=== PATIENT | male | born 1965 | race Two or more races ===

== ENCOUNTER 2024-05-03 19:17 | Emergency (ER) | payer MEDICAID, OTHER ==
[~2024-05-03] VITALS: Ht 180.3 cm; Wt 113.7 kg
--- NOTE | 2024-05-03 19:49 | DVH ---
EXAMINATION: AP portable chest radiograph CLINICAL HISTORY: chest pain COMPARISON: None FINDINGS: No dominant consolidation. The costophrenic angles appear clear. No sizable pleural effusion or pneu mothorax identified. The cardiomediastinal silhouette appears within normal limits given technique. IMPRESSION: No acute cardiopulmonary findings as visualized.
[2024-05-03 20:09] LABS: Basophils # (auto) 0 10 ^3/uL (0-0.2); Basophils % (auto) 0.5 % (0.0-2.0); Eosinophils # (auto) 0.1 10 ^3/uL (0-0.8); Eosinophils % (auto) 1.1 % (0.0-7.0); Hemoglobin 16.7 g/dL (13.5-17.5); Lymphocytes # (auto) 3.3 10 ^3/uL (0.4-5.4); Lymphocytes % (auto) 36.4 % (10.0-50.0); Mean Corpuscular Hemoglobin 30.9 pg (28.0-32.0); Mean Corpuscular Hgb Conc. 35.4 g/dL (32.0-36.0); Monocytes # (auto) 0.7 10 ^3/uL (0-1.3); Monocytes % (auto) 7.3 % (0.0-12.0); Neutrophils # (auto) 4.9 10 ^3/uL (1.6-8.6); Neutrophils % (auto) 54.7 % (37.0-80.0); Nucleated Red Blood Cells % 0.1 %; Platelet Count (auto) 275 10^3/uL (140-450); Red Cell Distribution Width 14.2 % (11.8-14.3)
[2024-05-03 20:24] LABS: Alanine Aminotransferase 30 U/L (7-40); Anion Gap 8 (5-15); Aspartate Aminotransferase 22 U/L (13-40); BUN/Creatinine Ratio 17.7 (10.0-20.0); Bilirubin, Total 0.6 mg/dL (0.2-1.0); Blood Urea Nitrogen 20 mg/dL (9-23); Carbon Dioxide 28 mmol/L (20-31); Chloride 105 mmol/L (98-107); Glucose 95 mg/dL (74-106); Potassium 4.4 mmol/L (3.5-5.1); Sodium 141 mmol/L (136-145); Total Protein 7.6 g/dL (5.7-8.2)
[2024-05-03 20:26] LABS: Albumin 4.9 g/dL (3.2-4.8); Alkaline Phosphatase 126 U/L (46-116); Calcium 10.8 mg/dL (8.7-10.4)
[2024-05-03] MEDS: ASPirin-EC 325mg tab PO ONE (21:26)
[2024-05-03 22:47] LABS: Urine Bacteria None Seen /hpf (None Seen)
[2024-05-03 22:53] LABS: Urine Blood Negative /uL (Negative); Urine Clarity Clear (Clear); Urine Color Yellow (Yellow); Urine Mucus FEW (None Seen); Urine Protein, UAD 3+ (Negative); Urine Specific Gravity 1.025 (1.001-1.035); Urine Squamous Epithelial Cell FEW /hpf (<5); Urine Urobilinogen Normal (Negative); Urine WBC 10 /hpf (0 - 3)
[2024-05-03] MEDS: cloNIDine HCL 0.1 MG TAB PO ONE (23:24)
[2024-05-03 23:26] VITALS: TEMP 98.1
[2024-05-04] MEDS ORDERED: CLON0.2T PO (00:25)
--- NOTE | 2024-05-04 00:25 | ED.PDOC ---
HPI Comments This patient is a pleasant but morbidly obese 58-year-old male who arrives the ED today with complaints of chest pain and shortness a breath for the past three days. Patient states be events has been intermittently until the last 12 hours after which they have been fairly consistent. Patient denies any history of cardiac or pulmonary concerns. Patient was hypertensive on arrival. Chief Complaint: Chest Pain Time Seen by MD: 19:21 Reviewed Notes: Nurses Notes Allergies: Coded Allergies: NO KNOWN ALLERGIES (Unverified , 05/03/24) Information Source: Patient Mode of Arrival: Ambulatory Severity: Moderate Timing: Days Duration: Intermittent Prehospital treatment: None Location: Substernal Onset: At Rest Cardiac Risk Factors: HTN Associated Signs and Symptoms: SOB Past Medical History PAST MEDICAL HISTORY: HTN Surgical History: Denies all surgeries Family History Family History: Reviewed,noncontributory to illness, No family hx of Cancer, No family hx of DM, No family hx of Heart rodrick, No family hx of HTN, No family hx ofKidney rodrick, No family hx of Liver rodrick, No family hx of Lung rodrick, No family hx of Stroke Social History Smoker: Non-Smoker Alcohol: Denies ETOH Use Drugs: Denies Drug Use Lives In: Home Constitutional: denies: chills, diaphoresis, fatigue, fever, malaise, sweats, weakness, others EENTM: denies: blurred vision, double vision, ear bleeding, ear discharge, ear drainage, ear pain, ear ringing, eye pain, eye redness, hearing loss, mouth pain, mouth swelling, nasal discharge, nose bleeding, nose congestion, nose pain, photophobia, tearing, throat pain, throat swelling, voice changes, others Respiratory: reports: shortness of breath; denies: cough, hemoptysis, orthopnea, SOB at rest, SOB with excertion, stridor, wheezing, others Cardiovascular: reports: chest pain; denies: dizzy spells, diaphoresis, Dyspnea on exertion, edema, irregular heart beat, left arm pain, lightheadedness, palpitations, PND, syncope, others Gastrointestinal: denies: abdomen distended, abdominal pain, blood streaked bowels, constipated, diarrhea, dysphagia, difficulty swallowing, hematemesis, melena, nausea, poor appetite, poor fluid intake, rectal bleeding, rectal pain, vomiting, others Genitourinary: denies: burning, dysuria, flank pain, frequency, hematuria, incontinence, penile discharge, penile sore, pain, testicle pain, testicle swelling, urgency, others Neurological: denies: dizziness, fainting, headache, left sided numbness, left sided weakness, numbness, paresthesia, pre-existing deficit, right sided numbness, right sided weakness, seizure, speech problems, tingling, tremors, weakness, others Musculoskeletal: denies: back pain, gout, joint pain, joint swelling, muscle pain, muscle stiffness, neck pain, others Integumetry: denies: bruises, change in color, change in hair/nails, dryness, laceration, lesions, lumps, rash, wounds, others Allergic/Immunocompromised: denies: Difficulty Healing, Frequent Infections, Hives, Itching, others Hematologic/Lymphatic: denies: anemia, blood clots, easy bleeding, easy bruising, swollen glands, others Endocrine: denies: excessive hunger, excessive sweating, excessive thirst, excessive urination, flushing, intolerance to cold, intolerance to heat, unexplained weight gain, unexplained weight loss, others Psychiatric: denies: anxiety, bipolar disorder, depression, hopeless, panic disorder, schizophrenia, sleepless, suicidal, others Physical Exam General Appearance: Mild Distress (Patient appears to be in mild distress at time of evaluation.), Obese HEENT: Normal ENT Inspection, Pharynx Normal, TMs Normal Neck: Full Range of Motion, Non-Tender, Normal, Normal Inspection Respiratory: Chest Non-Tender, Lungs Clear, No Accessory Muscle Use, No Respiratory Distress, Normal Breath Sounds Cardiovascular: No Edema, No JVD, No Murmur, No Gallop, Normal Peripheral Pulses, Regular Rate/Rhythm Breast Exam: Deferred Gastrointestinal: No Organomegaly, Non Tender, No Pulsatile Mass, Normal Bowel Sounds, Soft Genitalia: Deferred Pelvic: Deferred Rectal: Deferred Extremities: No calf tenderness, Normal capillary refill, Normal inspection, Normal range of motion, Non-tender, No pedal edema Neurologic: Alert, No Motor Deficits, Normal Affect, Normal Mood, No Sensory Deficits Cerebellar Function: Normal Reflexes: Normal Skin: Dry, Normal Color, Warm Lymphatic: No Adenopathy Was a procedure done? Was a procedure done?: No CP Differential Dx Differential Diagnosis: A-fib, Anxiety / Panic Attack, Atrial Dysrhythmia, AV Block 1st Degree, MN Differential Diagnosis: HTN Essential Differential Diagnosis: Angina X-Ray, Labs, Meds, VS Vital Signs Date Time Temp Pulse Resp B/P (MAP) Pulse Ox O2 Delivery O2 Flow Rate FiO2 05/03/24 23:26 98.1 60 16 169/89 (115) 93 98.1 05/03/24 23:26 60 16 93 Room Air 05/03/24 23:24 169/89 05/03/24 21:21 63 16 171/80 (110) 96 05/03/24 19:30 98.7 18 187/104 (131) 96 Lab Test 05/03/24 21:16 05/03/24 20:33 05/03/24 19:33 Range/Units Urine Color Yellow Yellow Urine Clarity Clear Clear Urine pH 6.0 5.0-9.0 Urine Specific Roff 1.025 1.001-1.035 Urine Protein 3+ H Negative Urine Ketones Negative Negative Urine Blood Negative Negative /uL Urine Nitrite Negative Negative Urine Bilirubin Negative Negative Urine Urobilinogen Normal Negative mg/dL Urine Leukocyte Esterase Negative Negative /uL Urine RBC 3 0 - 3 /hpf Urine WBC 10 0 - 3 /hpf Urine Squamous Epithelial Cells Few <5 /hpf Urine Bacteria None seen None Seen /hpf Urine Mucus Few None Seen Urine Glucose Normal Normal mg/dL Troponin I High Sensitivity 5 4 </=54 ng/L White Blood Count 9.0 4.4-10.8 10^3/uL Red Blood Count 5.40 4.5-5.90 10^6/uL Hemoglobin 16.7 13.5-17.5 g/dL Hematocrit 47.0 41.0-53.0 % Mean Corpuscular Volume 87.0 80.0-100.0 fL Mean Corpuscular Hemoglobin 30.9 28.0-32.0 pg Mean Corpuscular Hemoglobin Concent 35.4 32.0-36.0 g/dL Red Cell Distribution Width 14.2 11.8-14.3 % Platelet Count 275 140-450 10^3/uL Mean Platelet Volume 9.0 6.9-10.8 fL Neutrophils (%) (Auto) 54.7 37.0-80.0 % Lymphocytes (%) (Auto) 36.4 10.0-50.0 % Monocytes (%) (Auto) 7.3 0.0-12.0 % Eosinophils (%) (Auto) 1.1 0.0-7.0 % Basophils (%) (Auto) 0.5 0.0-2.0 % Neutrophils # (Auto) 4.9 1.6-8.6 10 ^3/uL Lymphocytes # (Auto) 3.3 0.4-5.4 10 ^3/uL Monocytes # (Auto) 0.7 0-1.3 10 ^3/uL Eosinophils # (Auto) 0.1 0-0.8 10 ^3/uL Basophils # (Auto) 0 0-0.2 10 ^3/uL Nucleated Red Blood Cells 0.1 % Sodium Level 141 136-145 mmol/L Potassium Level 4.4 3.5-5.1 mmol/L Chloride Level 105 98-107 mmol/L Carbon Dioxide Level 28 20-31 mmol/L Anion Gap 8 5-15 Blood Urea Nitrogen 20 9-23 mg/dL Creatinine 1.13 0.700-1.30 mg/dL Glomerular Filtration Rate Calc 75 >90 mL/min BUN/Creatinine Ratio 17.7 10.0-20.0 Serum Glucose 95 74-106 mg/dL Calcium Level 10.8 H 8.7-10.4 mg/dL Total Bilirubin 0.6 0.2-1.0 mg/dL Aspartate Amino Transferase (AST) 22 13-40 U/L Alanine Aminotransferase (ALT) 30 7-40 U/L Alkaline Phosphatase 126 H 46-116 U/L Total Protein 7.6 5.7-8.2 g/dL Albumin 4.9 H 3.2-4.8 g/dL Current Medications Medications (Trade) Dose Ordered Sig/Cameron Route Start Time Stop Time Status Last Admin Aspirin (Ecotrin Enteric Coated Tablet) 325 mg ONCE ONCE PO 05/03/24 19:30 05/03/24 19:31 DC 05/03/24 21:26 Clonidine HCl (Catapres Tablet) 0.2 mg ONCE ONCE PO 05/03/24 23:00 05/03/24 23:01 DC 05/03/24 23:24 X-Ray, Labs, Meds, VS Comment All studies performed the ED were evaluated by me personally. Laboratories were unremarkable for any acute systemic or cardiac process. EKG revealed a sinus rhythm with a rate of 58. Probable left ventricular hypertrophy with baseline wander in lead V1. ID interval of 149 and QT interval 402. Relatively unremarkable EKG. Chest x-ray is unremarkable for any consolidation or signs of pulmonary concerns. Patient's blood pressure was elevated at arrival and could be part of the component of the patient's chest pain concerns.. Advised patient follow up with primary care provider for possible Cardiology referral and evalua tion. Time of 1ST Reevaluation: 00:22 Reevaluation 1ST: Improved Consultation: PCP, Cardiology Patient Education/Counseling: Diagnosis, Treatment Family Education/Counseling: Diagnosis, Treatment Departure 1 Departure Time of Disposition: 00:23 Impression: Primary Impression: Chest pain Additional Impression: Hypertensive urgency Disposition: HOME / SELF CARE / HOMELESS Condition: Stable Additional Instructions: Advised patient utilize medication for elevated blood pressure concerns. Patient needs to follow up with his primary care provider for discussions related to medication management of his blood pressure as well as chest pain concerns. e-Prescriptions Clonidine Hydrochloride (Clonidine Hcl) 0.2 Mg Tab 1 TAB PO BIDP PRN, #10 TAB 0 Refills To be used if systolic pressures above 160 or diastolic pressures above 90. Prov: ASHISH OLVERA PAC 05/04/24 Discharged With: Self, Friend Critical Care Note Critical Care Time?: No Stability Stability form required: No Heart Score Heart Score: Heart Score Response (Comments) Value History Slightly Suspicious 0 EKG Repolarization Disturb 1 Age 45-64 1 Risk Factors 1 or 2 risk factors 1 Troponin Normal limit 0 Total 3 ASHISH OLVERA PAC May 04, 2024 00:25
[2024-05-04 00:55] VITALS: BP 147/78; PULSE 60; RESP 16; O2SAT 100
--- NOTE | 2024-05-05 07:16 | ECG ---
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
--- NOTE | 2024-05-06 11:05 | ECG ---
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
== END 2024-05-04 01:01 | disposition home or self-care (01) ==
LOC: ER 19:17
DX: R07.9 Chest pain, unspecified (principal); I10 Essential (primary) hypertension; I16.0 Hypertensive urgency; E66.01 Morbid (severe) obesity due to excess calories; Z68.35 Body mass index [BMI] 35.0-35.9, adult
CPT/HCPCS: 36415; 71045; 80053; 81001; 84484; 85025; 93005